=== PATIENT | male | born 1995 | race Caucasian/White ===

== ENCOUNTER 2021-09-19 11:04 | Emergency (ER) | payer MEDICAID ==
[~2021-09-19] VITALS: Ht 177.8 cm; Wt 72.6 kg
[2021-09-19 13:42] VITALS: BP 123/80
== END 2021-09-19 14:25 | disposition home or self-care (01) ==
LOC: ER 11:04
DX: S51.012A Laceration without foreign body of left elbow, initial encounter (principal); W22.8XXA Striking against or struck by other objects, initial encounter; Y93.89 Activity, other specified; Y92.89 Other specified places as the place of occurrence of the external cause; Y99.8 Other external cause status
CPT/HCPCS: 12001; 73080

== ENCOUNTER 2023-05-16 10:37 | Emergency (ER) | payer MEDICAID ==
[~2023-05-16] VITALS: Ht 180.3 cm; Wt 83.2 kg
[2023-05-16] MEDS ORDERED: SODIUM CHLORIDE 0.9% 1,000 ML IVB ONE (11:15)
[2023-05-16] MEDS ORDERED: KETOROLAC TROMETH 30 MG/ML 1ML VIAL IV ONE (11:15)
[2023-05-16] MEDS ORDERED: ONDANSETRON HCL 4 MG/2 ML VIAL IV ONE (11:15)
[2023-05-16 11:35] LABS: Urine Bacteria NONE SEEN /hpf (None Seen); Urine Blood 2+ /uL (Negative); Urine Mucus FEW (None Seen); Urine Specific Gravity 1.022 (1.001-1.035); Urine WBC 3 /hpf (0 - 3)
[2023-05-16 11:41] LABS: Basophils # (auto) 0 10 ^3/uL (0-0.2); Basophils % (auto) 0.3 % (0.0-2.0); Eosinophils # (auto) 0.3 10 ^3/uL (0-0.8); Eosinophils % (auto) 3.1 % (0.0-7.0); Hematocrit 46.3 % (41.0-53.0); Hemoglobin 15.8 g/dL (13.5-17.5); Lymphocytes # (auto) 1.1 10 ^3/uL (0.4-5.4); Lymphocytes % (auto) 12.4 % (10.0-50.0); Mean Corpuscular Hemoglobin 30.6 pg (28.0-32.0); Mean Corpuscular Hgb Conc. 34.1 g/dL (32.0-36.0); Mean Corpuscular Volume 89.6 fL (80.0-100.0); Monocytes # (auto) 0.5 10 ^3/uL (0-1.3); Monocytes % (auto) 5.2 % (0.0-12.0); Neutrophils # (auto) 7.2 10 ^3/uL (1.6-8.6); Nucleated Red Blood Cells % 0.2 %; Red Blood Cells 5.17 10^6/uL (4.5-5.90); Red Cell Distribution Width 13.4 % (11.8-14.3); White Blood Cell 9.1 10^3/uL (4.4-10.8)
[2023-05-16 12:14] LABS: Albumin 4.2 g/dL (3.4-5.0); Calcium 9.4 mg/dL (8.5-10.1); Potassium 3.7 mmol/L (3.5-5.1)
[2023-05-16 12:18] LABS: BUN/Creatinine Ratio 11.9 (10.0-20.0); Bilirubin, Total 0.6 mg/dL (0.2-1.0); Total Protein 8.6 g/dL (6.4-8.2)
[2023-05-16] MEDS ORDERED: TRAM50TA2 PO (12:18)
[2023-05-16 12:38] VITALS: BP 135/84
== END 2023-05-16 12:40 | disposition home or self-care (01) ==
LOC: ER 10:37
DX: R10.31 Right lower quadrant pain (principal); R11.2 Nausea with vomiting, unspecified; F17.210 Nicotine dependence, cigarettes, uncomplicated; F12.10 Cannabis abuse, uncomplicated; K21.9 Gastro-esophageal reflux disease without esophagitis; Z87.442 Personal history of urinary calculi
CPT/HCPCS: 36415; 74176; 80053; 81001; 83690; 85025

== ENCOUNTER 2023-05-17 12:07 | Emergency (ER) | payer MEDICAID ==
[~2023-05-17] VITALS: Ht 180.3 cm; Wt 82.4 kg
[~2023-05-17 12:07] MED LIST: TRAM50TA2 PO
[2023-05-17 12:43] VITALS: BP 158/102
== END 2023-05-17 15:47 | disposition left against medical advice (07) ==
LOC: ER 12:07
DX: N50.811 Right testicular pain (principal); Z53.21 Procedure and treatment not carried out due to patient leaving prior to being seen by health care provider

== ENCOUNTER 2024-01-05 15:29 | Emergency (ER) | payer MEDICAID ==
[~2024-01-05] VITALS: Ht 180.3 cm; Wt 100.0 kg
[2024-01-05 15:51] VITALS: BP 138/87; PULSE 93; RESP 16; O2SAT 98
[2024-01-05] MEDS ORDERED: NABU-72 PO (17:09)
[2024-01-05] MEDS ORDERED: HYDR-4902 PO (17:09)
[2024-01-05] MEDS: HYDROcodone-ACET 5/325MG TAB PO ONE (17:23)
== END 2024-01-05 17:24 | disposition home or self-care (01) ==
LOC: ER 15:29
DX: S89.92XA Unspecified injury of left lower leg, initial encounter (principal); K21.9 Gastro-esophageal reflux disease without esophagitis; F17.210 Nicotine dependence, cigarettes, uncomplicated; Z79.899 Other long term (current) drug therapy; V87.8XXA Person injured in other specified noncollision transport accidents involving motor vehicle (traffic), initial encounter; Y93.89 Activity, other specified; Y92.89 Other specified places as the place of occurrence of the external cause; Y99.8 Other external cause status
CPT/HCPCS: 29505; 73562